=== PATIENT | female | born 1980 | race Caucasian/White ===

== ENCOUNTER 2022-09-16 09:12 | Emergency (ER) | payer OTHER ==
[~2022-09-16] VITALS: Ht 157.5 cm; Wt 84.8 kg
[2022-09-16] MEDS ORDERED: AMOXICILLIN500 M1 PO (09:24)
[2022-09-16] MEDS ORDERED: NORTRIPTYLINE H10 MG PO (09:25)
[2022-09-16] MEDS ORDERED: RIZATRIPTAN10 MG PO (09:25)
== END 2022-09-16 14:01 | disposition home or self-care (01) ==
LOC: ER 09:12
DX: G43.909 Migraine, unspecified, not intractable, without status migrainosus (principal)